=== PATIENT | female | born 1990 | race American Indian/Alaskan Native ===

== ENCOUNTER 2016-07-25 20:56 | Emergency (ER) | payer OTHER ==
[2016-07-25 22:02] LABS: Basophils % (Auto) 0.8 % (0.0-1.8); Eosinophils % (Auto) 0.8 % (0.0-4.3); Hematocrit 42.1 % (30.3-42.9); Hemoglobin 14.3 gm/dl (10.1-14.3); Mean Corpuscular HGB Conc 34 % (30-34); Mean Corpuscular Hemoglobin 33 pg (28-32); Mean Corpuscular Volume 97 fl (79-97); Platelet Count 274 K/mm3 (140-440); Red Blood Count 4.35 M/mm3 (3.65-5.03); Red Cell Distribution Width 12.8 % (13.2-15.2); White Blood Count 6.7 K/mm3 (4.5-11.0)
[2016-07-25 22:30] LABS: Anion Gap 23 mmol/L; Blood Urea Nitrogen 10 mg/dL (7-17); Calcium 9.9 mg/dL (8.4-10.2); Carbon Dioxide 20 mmol/L (22-30); Chloride 97.6 mmol/L (98-107); Glucose 112 mg/dL (65-100); Potassium 3.4 mmol/L (3.6-5.0); Sodium 137 mmol/L (137-145)
[2016-07-26 01:12] LABS: Bilirubin,Urine NEG (Negative); Blood,Urine NEG (Negative); Ketones,Urine 80 mg/dL (Negative); Leukocyte Esterase,Urine NEG (Negative); Mucus,Urine FEW /HPF; Nitrite,Urine NEG (Negative); Protein,Urine <15 mg/dL mg/dL (Negative); Urobilinogen,Urine < 2.0 mg/dL (<2.0)
[2016-07-26] MEDS ORDERED: TYLENOL ONE (01:50)
[2016-07-26] MEDS ORDERED: TYLENOL PO ONE (01:54)
[2016-07-26 07:59] VITALS: BP 121/85
== END 2016-07-26 09:08 | disposition left against medical advice (07) ==
LOC: ED 20:56
DX: R07.89 Other chest pain (principal); Z53.21 Procedure and treatment not carried out due to patient leaving prior to being seen by health care provider
CPT/HCPCS: 36415; 80048; 81001; 81025; 84484; 85025; 93005; 93010

== ENCOUNTER 2019-02-22 15:55 | Emergency (ER) | payer SELFPAY ==
[2019-02-22 16:02] VITALS: BP 141/91
--- NOTE | 2019-02-22 17:27 | Event Note ---
ED Screening Note Date of service: 02/22/19 Time: 17:21 ED Screening Note: This initial assessment/diagnostic orders/clinical plan/treatment(s) is/are subject to change based on patients health status, clinical progression and re- assessment by fellow clinical providers in the ED. Further treatment and workup at subsequent clinical providers discretion. Patient/guardian urged not to elope from the ED as their condition may be serious if not clinically assessed and managed. 28 yo female with sudden onset of Chest pain and chest tightness just prior to arrival to ER. She denies cough,fever,. No recent and frequent travels, no surgical procedures not on control her last LMP was 3 months ago. Denies abd pain, n/v/d. Pt denies any PMH. She had 1 prior epipsode of Chest pain approx 1 year ago. Initial orders include: EKG,CXR, UA, PREG, TROP.
== END 2019-02-22 17:59 | disposition left against medical advice (07) ==
LOC: ED 15:55
DX: R07.89 Other chest pain (principal); Z53.21 Procedure and treatment not carried out due to patient leaving prior to being seen by health care provider
CPT/HCPCS: 93005; 93010